=== PATIENT | female | born 1950 | race Caucasian/White ===

== ENCOUNTER → 2016-03-28 | Outpatient (CLI) | payer BC ==
[~2016-03-28] MED LIST: AMLO5TAB4 PO; ANAS1TAB19 PO; ASPI81TA28 PO; CALCTAB5 PO; CARV12.5 PO; FAMO40TA6 PO; LEVO100T PO; LOVAZA PO; MULT-506 PO; ROSU20TA PO
--- NOTE | 2016-03-28 13:14 | DIAGNOSTIC IMAGING REPORT ---
TWO VIEW CHEST CLINICAL HISTORY: Bronchitis. FINDINGS: PA and lateral chest radiographs are compared to study dated 09/08/2014. Correlation is made with chest CT dated 12/02/2005. The heart is top normal for projection. The mediastinal contour is within normal limits. There is chronic interstitial thickening and mild elevation of the right hemidiaphragm. No airspace consolidation or pleural effusion is seen. There is minimal bibasilar atelectasis. There is no pneumothorax. The skeletal structures are osteopenic. The bony thorax appears intact. IMPRESSION: No active disease in the chest. Electronically signed by: Juan Diego Miller M.D. 03/28/2016 1:12 PM Dictated Date/Time: 03/28/2016 1:11 PM
== END | disposition home or self-care (01) ==
LOC: C.RAD 12:43
PROVIDERS: ATTEND Internal Medicine Pulmonary Disease
DX: J20.9 Acute bronchitis, unspecified (principal)

== ENCOUNTER → 2016-06-23 | Outpatient (CLI) | payer BC ==
--- NOTE | 2016-06-25 07:05 | PULMONARY FUNCTION TEST ---
Interpretation based off ATS criteria. SPIROMETRY: Mild obstructive ventilatory disease with an FEV1 of 81%. No significant reversibility. LUNG VOLUMES: Within normal limits. DIFFUSION CAPACITY: Mildly decreased at 70%, but corrects by alveolar volume at 95%. INTERPRETATION: Normal to mild obstructive ventilatory disease.
== END | disposition home or self-care (01) ==
LOC: C.RC 12:58
PROVIDERS: ATTEND Internal Medicine Pulmonary Disease
DX: R91.1 Solitary pulmonary nodule (principal); Z87.891 Personal history of nicotine dependence

== ENCOUNTER → 2016-07-09 | Outpatient (CLI) | payer BC ==
[2016-07-09 14:51] LABS: ALKALINE PHOSPHATASE 84 U/L (45-117); ALT/SGPT 23 U/L (12-78); AST/SGOT 19 U/L (15-37); BLOOD UREA NITROGEN 19 mg/dl (7-18); BUN/CREATININE RATIO 39.6 (10-20); CALCIUM 8.9 mg/dl (8.5-10.1); CARBON DIOXIDE 29 mmol/L (21-32); CHLORIDE 108 mmol/L (98-107); CREATININE 0.49 mg/dl (0.60-1.20); GLUCOSE 100 mg/dl (70-99); POTASSIUM 3.9 mmol/L (3.5-5.1); SODIUM 143 mmol/L (136-145)
[2016-07-09 14:58] LABS: PHOSPHORUS 3.3 mg/dl (2.5-4.9); THYROID STIMULATING HORMONE 0.016 uIu/ml (0.300-4.500)
[2016-07-09 16:08] LABS: CALCIUM URINE 5.2 mg/dl
== END | disposition home or self-care (01) ==
LOC: C.LAB 13:20
PROVIDERS: ATTEND Internal Medicine Endocrinology, Diabetes & Metabolism
DX: E03.9 Hypothyroidism, unspecified (principal); E78.5 Hyperlipidemia, unspecified; M85.80 Other specified disorders of bone density and structure, unspecified site

== ENCOUNTER → 2016-10-16 | Outpatient (CLI) | payer BC ==
--- NOTE | 2016-10-16 14:42 | DIAGNOSTIC IMAGING REPORT ---
CT OF THE CHEST WITHOUT IV CONTRAST CLINICAL HISTORY: Pulmonary nodule. COMPARISON STUDY: Chest CT December 03, 2015 and April 23, 2016. CT DOSE: 321.51 mGycm TECHNIQUE: Axial images of the chest were obtained without IV contrast. Images were reviewed in the axial, sagittal, and coronal planes. IV contrast was not administered for this examination. A dose lowering technique was utilized adhering to the principles of ALARA. FINDINGS: A prominent precarinal lymph node measures 1 cm in short axis diameter. However, this node has a fatty hilum. This is likely benign. The size of the heart is normal. There is no pericardial effusion. There is extensive coronary artery calcification. Central airways are patent. There is no consolidation to suggest pneumonia. Peripheral predominant subpleural reticulation and groundglass opacity without definite honeycombing is noted. This is similar to CT of April 23, 2016. A few groundglass nodules within the right upper lobe shown on prior exam of April 23, 2016 are no longer visualized. There are no suspicious pulmonary nodules. No pneumothorax or pleural effusion is present. Bony thorax and upper abdomen are unremarkable. IMPRESSION: 1. No suspicious pulmonary nodules. Several groundglass nodules within the right upper lobe shown on CT of April 23, 2016 have resolved indicating an inflammatory or infectious etiology. 2. No change in basilar peripheral predominant subpleural reticulation and groundglass opacity. This suggests an NSIP pattern of interstitial lung disease. 3. Extensive coronary artery calcification. Electronically signed by: Santi Majano M.D. 10/16/2016 2:40 PM Dictated Date/Time: 10/16/2016 2:31 PM
== END | disposition home or self-care (01) ==
LOC: C.CTS 14:06
PROVIDERS: ATTEND Internal Medicine Pulmonary Disease
DX: R91.1 Solitary pulmonary nodule (principal)

== ENCOUNTER → 2017-10-05 | Outpatient (CLI) | payer BC ==
[~2017-10-05] MED LIST changes: -ANAS1TAB19 PO; +ANAS1TAB59 PO
--- NOTE | 2017-10-06 08:08 | PULMONARY FUNCTION TEST ---
Pre-bronchodilator spirometry is well within normal limits but suggests the presence of minimal small airways disease where there was modest response to bronchodilator as evidenced by improved flow measured at low lung volumes. This may suggest the presence of early reversible airway disease. Lung volumes suggested mild restrictive ventilatory defect. Diffusion capacity was well within normal limits. Clinical correlation is needed.
== END | disposition home or self-care (01) ==
LOC: C.RC 10:15
PROVIDERS: ATTEND Internal Medicine Pulmonary Disease
DX: R05 Cough (principal); R91.1 Solitary pulmonary nodule